=== PATIENT | female | born 2000 | race Hispanic/Latino ===

== ENCOUNTER 2020-02-13 18:49 | Day surgery (SDC) | payer OTHER ==
[2020-02-13 19:30] VITALS: TEMP 99; BMI 32.6
[2020-02-13 19:31] VITALS: BP 121/75
--- NOTE | 2020-02-13 20:31 | PDOC.FPROB ---
FMR OB H&P: HPI - History of Present Illness Chief Complaint: contractions History of Present Illness: Patient is a 19 year old @ 40.2 weeks based on 14.3 sono, JASON 02/11/2020 who presented to the ED with complaints of contractions that started the night before, initially q30 minutes but became every 6-7 min in the last few hours. She endorses +FM, notes scant white vaginal discharge. Denies LOF. Denies vaginal bleeding, dysuria, NVD, chest pain, SOB, palpitations, LE swelling, vision changes or headache. 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 - Surgical History Sx History: none - Social History Social History: no alcohol, drugs or smoking - Family History Family History: none FMR OB H&P: Medications - Current Home Medications: Medication Instructions Recorded Confirmed Type PNV No.118/Iron Fumarate/FA 1 tablet PO DAILY 02/13/20 02/13/20 History [ 19 Chewable Tablet] Allergies/Adverse Reactions: Allergies Allergy/AdvReac Type Severity Reaction Status Date / Time No Known Drug Allergies Allergy Verified 02/13/20 19:19 FMR OB H&P: ROS - Review of Systems General: denies: fever/chills, weight/appetite/sleep changes Eyes: denies: eye pain, vision changes ENT: denies: nasal congestion, rhinorrhea Cardiovascular: denies: chest pain, palpitation, edema Respiratory: denies: cough, congestion, shortness of breath Gastrointestinal: denies: nausea, vomiting, diarrhea, constipation Genitourinary (Female): reports: vaginal discharge (scant, white), contractions. denies: incontinence, dysuria, vaginal pain, vaginal bleeding Musculoskeletal: denies: pain, stiffness, tenderness Neurologic: denies: numbness, syncope, seizures, weakness, headache Integumentary: denies: itching, rash Breast: denies: lumps, bumps Endocrine: denies: polydipsia, polyuria Hematologic/Lymphatic: denies: prolonged or excessive bleeding, enlarged lymph nodes FMR OB H&P: Vital Signs - Maternal Vital signs: Vital Signs - First Documented Temp Pulse Resp BP 99.0 F 82 18 121/75 02/13/20 19:15 02/13/20 19:15 02/13/20 19:15 02/13/20 19:15 - Heart Tones Baseline: 140 Variability: moderate Acceleration: present Deceleration: absent Category: category 1 [place] contractions every: 5-7 FMR OB H&P: Physical Exam - Physical Exam General: NAD HEENT: normocephalic and atraumatic, PERRLA, EOMI, MMM Neck: supple, FROM Breast: symmetric, non-tender Heart: RRR, normal S1/S2, no murmurs/rubs/gallops General: CTAB, no respiratory distress Abdomen: soft, gravid, non-tender Musculoskeletal: normal gait and station, FROM in all four extremities Neurological: no tremor, no focal deficit Skin: no rash, good tugor Lymphatic: no unusual bruising or bleeding, no purpura Psychiatric: intact recent and remote memory, good judgement and insight, normal mood and affect - Pelvic Exam SVE: /-1 Membranes: intact Presentation: cephalic per US FMR OB H&P: A/P Discussion: Date/Time: 02/13/202030 sIUP, term at 40.2 weeks by 14.3 week sono labs neg, GBS negative @1930 /, cat I strip, sandy every 5-7 minutes, baseline 140s, membranes intact Patient is scheduled for induction of labor on 02/17/2020, patient lives 10 minutes away from the hospital - plan is to discharge with labor precautions, patient is agreeable to plan Varicella NonjImmune - needs vaccine PP Anemia in : H/H 11.4/33.1 on 01/27/2020 - on oral iron This H&P was discussed with Dr. Gaines who is in agreement with the plan. Addendum - Attending - Attending Attestation Date/Time: 02/14/20 3989 I personally evaluated the patient and discussed the management with Dr. Shelby. I agree with the History, Examination, Assessment and Plan documented above.
== END 2020-02-13 20:30 | disposition home or self-care (01) ==
LOC: L&D/OP 18:49
PROVIDERS: ATTEND Obstetrics & Gynecology
DX: O47.1 False labor at or after 37 completed weeks of gestation (principal); O48.0 Post-term pregnancy; O99.013 Anemia complicating pregnancy, third trimester; D50.9 Iron deficiency anemia, unspecified; O98.513 Other viral diseases complicating pregnancy, third trimester; B01.9 Varicella without complication; Z3A.40 40 weeks gestation of pregnancy

== ENCOUNTER 2020-02-14 09:28 | Outpatient (CLI) | payer OTHER ==
[2020-02-15 12:11] LABS: SARS-CoV-2 MS2 Positive; SARS-CoV-2 N Gene Negative; SARS-CoV-2 S Gene Negative; SARS-CoV-2 by NAA Not Detected (NotDetected); SARS-CoV-2 orf1ab Negative
== END 2020-02-14 09:29 | disposition home or self-care (01) ==
LOC: LABBT 09:28
PROVIDERS: ATTEND Family Medicine
DX: Z20.828 Contact with and (suspected) exposure to other viral communicable diseases (principal)
CPT/HCPCS: 87635; U0003

== ENCOUNTER 2020-02-15 16:07 | Inpatient (IN) | payer MEDICAID, OTHER, SELFPAY ==
[2020-02-15 16:31] VITALS: BMI 32.6
[2020-02-15] MEDS ORDERED: Ondansetron PF 4 MG/2 ML Vial IVP PRN (16:58)
[2020-02-15] MEDS ORDERED: Misoprostol 200 MCG TAB PR PRN (16:58)
[2020-02-15] MEDS ORDERED: Methylergonovine 0.2 MG/ML VIAL IM PRN (16:58)
[2020-02-15] MEDS ORDERED: Promethazine HCl 25 MG/ML VIAL IM PRN (16:58)
[2020-02-15] MEDS ORDERED: NS / Oxytocin 40 units/1000ml 1,000 ML IV PRN ×2 (16:58→18:57)
[2020-02-15] MEDS ORDERED: hydrALAZINE 20 MG/ML VIAL SLOW IVP PRN (16:58)
[2020-02-15] MEDS ORDERED: Lidocaine 1% (PF) 30 ML VIAL SC PRN (16:58)
[2020-02-15] MEDS ORDERED: Carboprost 250 MCG/ML AMP IM PRN (16:58)
[2020-02-15] MEDS ORDERED: Ibuprofen 800 MG TAB PO PRN (16:58)
--- NOTE | 2020-02-15 17:04 | PDOC.FPROB ---
FMR OB H&P: HPI - History of Present Illness Chief Complaint: SROM Primary Care Physician: 19 y/o at 40.4 wks by 14.3 wk clarice presents for SROM at 1500 this afternoon. Fluid reported to be stained with light meconium. Reports she has been feeling contractions for 3 days, which became stronger and more frequent early this AM. She feels her contractions to be 5-6 minutes apart. Endorses movement. Denies vaginal bleeding, vaginal discharge. She is also endorsing dysuria for the past 3 days, denies hematuria. She does have some back pain which she describes very low in her back, not over her costovertebral area. Complications during this include anemia of for which she has been given iron. She reports she is taking vitamin. 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 - Surgical History Sx History: no past surgeries - Social History Social History: denies tobacco, etoh, drug use - Family History Family History: denies significant family hx FMR OB H&P: Medications - Current Home Medications: Medication Instructions Recorded Confirmed Type PNV No.118/Iron Fumarate/FA 1 tablet PO DAILY 02/13/20 02/15/20 History [ 19 Chewable Tablet] Allergies/Adverse Reactions: Allergies Allergy/AdvReac Type Severity Reaction Status Date / Time No Known Drug Allergies Allergy Verified 02/15/20 16:32 FMR OB H&P: ROS - Review of Systems General: denies: fever/chills, fatigue Eyes: denies: vision changes ENT: denies: nasal congestion, rhinorrhea, sore throat Cardiovascular: denies: chest pain, palpitation, edema Respiratory: denies: cough, congestion, shortness of breath Gastrointestinal: denies: abdominal pain, diarrhea, constipation Genitourinary (Female): reports: dysuria, polyuria, contractions. denies: hematuria, vaginal discharge, vaginal bleeding, vaginal pressure Musculoskeletal: reports: pain (low back pain) Neurologic: denies: numbness, headache Integumentary: denies: rash Hematologic/Lymphatic: denies: prolonged or excessive bleeding FMR OB H&P: Vital Signs - Maternal Vital signs: Vital Signs - First Documented Temp Pulse Resp BP Pulse Ox 100.1 F H 80 16 131/80 99 02/15/20 16:26 02/15/20 16:26 02/15/20 16:26 02/15/20 16:26 02/15/20 16:26 - Heart Tones Baseline: 155 Variability: moderate Acceleration: present Deceleration: absent Category: category 1 [place] contractions every: q2-4 min, irregular contraction pattern FMR OB H&P: Physical Exam - Physical Exam General: NAD, awake, alert and oriented HEENT: normocephalic and atraumatic, MMM, conjunctiva clear, no scleral icterus, grossly normal vision, grossly normal hearing, good dention Neck: supple, no LAD Heart: RRR, normal S1/S2, no murmurs/rubs/gallops, pulses present, no edema General: CTAB, no respiratory distress, no rales/rhonchi, no wheezing Abdomen: soft, gravid, non-tender Musculoskeletal: pulses present Neurological: sensation to pain,touch and proprioception grossly normal, DTR +1, no clonus Skin: no rash Lymphatic: no unusual bruising or bleeding, no LAD Psychiatric: intact recent and remote memory, good judgement and insight, normal mood and affect - Pelvic Exam SVE: /-2 Membranes: SROM light mec reported Presentation: cephalic confirmed with bedside sono FMR OB H&P: A/P Disposition: sIUP @ 40.4 wks @ 40.4 wks with SROM with light meconium reported, ctx q2-4 min in an irregular pattern on toco. Initial SVE at 1445 /-2. GBS negative. COVID screen negative on 02/13. - NPO w/ice chips for labor - continue monitoring - recheck SVE in 2 hours - consider starting pitocin if no change with irregular contractions Meconium stained fluid Light meconium reported, Tmax 100.1F - continue to monitor vitals - consider addition ampicillin + gentamicin if develops true fever/signs of chorioamnionitis Dysuria - check UA and urine cx via straight cath Anemia of - resumed PNV and oral iron Varicella non-immune Will need vaccination post-. Discussion: Date/Time: 02/15/201702 This H&P was discussed with Dr. Christina and Dr. Gaines who agree with the above documentation and plan. Addendum - Attending - Attending Attestation Date/Time: 02/15/201905 I personally evaluated the patient and discussed the management with Drs. Villarreal and Carri. I agree with the History, Examination, Assessment and Plan documented above.
[2020-02-15 17:50] LABS: Mean Corpuscular HGB CONC 34.4 g/dL (32.0-36.0); Mean Corpuscular Hemoglobin 30.2 pg (25.0-35.0); Mean Corpuscular Volume 87.9 fL (78.0-98.0); Mean Platelet Volume 8.5 fL (7.4-10.4); Platelet Count 254 thou/uL (130-400); RBC Distribution Width 13.3 % (11.5-14.5); White Blood Cell (WBC) Count 14.5 thou/uL (4.8-10.8)
[2020-02-15] MEDS ORDERED: Lactated Ringer's 1,000 ML IV SCH (18:00)
[2020-02-15 18:32] LABS: Syphilis Antibody Nonreactive (Nonreactive); Syphilis Antibody Index 0.03 S/CO (<1.00 Non-Reactive)
[2020-02-15 18:33] LABS: HBSAg Index 0.12 S/CO (0-0.99); Hep B Surf Ag Non-Reactive S/CO (NonReactive)
--- NOTE | 2020-02-15 18:52 | PDOC.LDPN ---
Labor & Delivery Progress Note - Subjective Subjective: comfortable, vaginal pressure - Objective Vital signs reviewed and normal: yes General: resting SVE: 3.5/75/-1 Dilation: 3.5 Effacement: 75% Station: -1 FHT: category 1 [place] contractions every: 4-5 minutes Plan: continue plan of care, pitocin for augmentation -: sIUP @ 40.4 wks @ 40.4 wks with SROM with light meconium reported, ctx q2-4 min in an irregular pattern on toco. Initial SVE at 1445 3/75/-2. GBS negative. COVID screen negative on 02/13. - NPO w/ice chips for labor - continue monitoring - SVE @ 1845 3.5/75/-1, cat 1, irregular contraction pattern - pit started Meconium stained fluid Light meconium reported, Tmax 100.1F - continue to monitor vitals, Temp remains <100.4 - consider addition ampicillin + gentamicin if develops true fever/signs of c horioamnionitis Dysuria - check UA and urine cx via straight cath Anemia of - resumed PNV and oral iron Varicella non-immune Will need vaccination post-. Discussion: Date/Time: 02/15/201702 Addendum - Attending - Attending Attestation Date/Time: 02/15/201930 I personally evaluated the patient and discussed the management with Dr. Titus. I agree with the History, Examination, Assessment and Plan documented above with any addition or exceptions noted below. No progress noted x 2 hours, start pitocin 2* to light meconium.
[2020-02-15] MEDS ORDERED: NS w/ Oxytocin 10 units 500 ML IV SCH ×2 (19:00)
[2020-02-15 19:03] LABS: Bacteria/HPF None Seen HPF (None Seen); Bilirubin Negative (Negative); Blood, Urine 3+ (Negative); Clarity Clear (Clear); Glucose, Urine (Dipstick) Normal (Negative); Ketone, Urine Negative (Negative); Leukocyte Negative Leu/uL (Negative); Nitrite Negative (Negative); Protein, Urine (Dipstick) Negative (Neg-Trace); RBC/HPF 0-3 HPF (0-3); Specific Gravity, Urine 1.005 (1.002-1.036); Squamous Epithelial None Seen HPF (0-3); Urobilinogen Normal mg/dL (Less than 2); WBC/HPF 0-3 HPF (0-3)
--- NOTE | 2020-02-15 21:21 | PDOC.LDPN ---
Labor & Delivery Progress Note - Subjective Subjective: painful contractions - Objective Vital signs reviewed and normal: yes General: breathing through contractions SVE: /-1 Dilation: 4 Effacement: 90% Station: -1 FHT: category [address] [place] contractions every: 2-3 minutes Plan: continue plan of care, pitocin for augmentation -: sIUP @ 40.4 wks @ 40.4 wks with SROM with light meconium reported, ctx q2-4 min in an irregular pattern on toco. Initial SVE at 1445 /-2. GBS negative. COVID screen negative on 02/13. - NPO w/ice chips for labor - continue monitoring - SVE @ 1845 3.5/-1, cat 1, irregular contraction pattern - pit started - SVE @ 2115 /-1, cat 1, contractions 2-3 minutes Meconium stained fluid Light meconium reported, Tmax 100.9F - started ampicillin +gentamicin @ 1999 on 02/14 Dysuria - UA negative -UCx pending Anemia of - resumed PNV and oral iron Varicella non-immune Will need vaccination post-. Addendum - Attending - Attending Attestation Date/Time: 02/15/20 3198 I personally evaluated the patient and discussed the management with Dr. Titus. I agree with the History, Examination, Assessment and Plan documented above.
[2020-02-15] MEDS: Ampicillin 2 GM in Sodium Chloride 0.9% 100 ML IVPB SCH (21:22)
[2020-02-15] MEDS ORDERED: Acetaminophen 650 MG Suppository PR PRN (23:18)
[2020-02-15] MEDS ORDERED: Acetaminophen 325 MG TAB PO PRN (23:18)
--- NOTE | 2020-02-15 23:28 | PDOC.LDPN ---
Labor & Delivery Progress Note - Subjective Subjective: comfortable - Objective Abnormal vital signs: T: 101 General: NAD, breathing through contractions SVE: 6/100/0 Dilation: 6 Effacement: 100% Station: 0 FHT: category 2 (HR 160s), variability present [place] contractions every: 3-4 minutes Plan: continue plan of care, pitocin for augmentation -: sIUP @ 40.4 wks @ 40.4 wks with SROM with light meconium reported, ctx q2-4 min in an irregular pattern on toco. Initial SVE at 1445 3/75/-2. GBS negative. COVID screen negative on 02/13. - NPO w/ice chips for labor - continue monitoring - SVE @ 1845 3.5/75/-1, cat 1, irregular contraction pattern - pit started - SVE @ 2115 4/90/-1, cat 1, contractions 2-3 minutes - Temp 101, gave tylenol - SVE @ 2315 6/100/0, cat 2 (FHT 160s), contractions 3-4 minutes Meconium stained fluid Light meconium reported, Tmax 100.9F - started ampicillin +gentamicin @ 1999 on 02/14 Dysuria - UA negative -UCx pending Anemia of - resumed PNV and oral iron Varicella non-immune Will need vaccination post-. Addendum - Attending - Attending Attestation Date/Time: 02/16/20 5006 I personally evaluated the patient and discussed the management with Dr. Titus. I agree with the History, Examination, Assessment and Plan documented above.
[2020-02-15] MEDS ORDERED: Ampicillin 2 GM in Sodium Chloride 0.9% 100 ML IVPB SCH (23:59)
--- NOTE | 2020-02-16 01:32 | PDOC.LDPN ---
Labor & Delivery Progress Note - Subjective Subjective: comfortable, painful contractions - Objective Abnormal vital signs: Tmax - 101.7 General: NAD, breathing through contractions SVE: 6/100/0 Dilation: 6 Effacement: 100% Station: 0 FHT: category 2, variability present [place] contractions every: 3-4 minutes AROM: meconium stained fluid Plan: continue plan of care, other () -: sIUP @ 40.4 wks @ 40.4 wks with SROM with light meconium reported, ctx q2-4 min in an irregular pattern on toco. Initial SVE at 1445 3/75/-2. GBS negative. COVID screen negative on 02/13. - NPO w/ice chips for labor - continue monitoring - SVE @ 1845 3.5/75/-1, cat 1, irregular contraction pattern - pit started - SVE @ 2115 4/90/-1, cat 1, contractions 2-3 minutes - Temp 101, gave tylenol - SVE @ 2315 6/100/0, cat 2 (FHT 160s), contractions 3-4 minutes - SVE @ 0120 6/100/0, cat 2 (FHT 170-180s), thick meconium, contractions 2-3 minutes Meconium stained fluid Light meconium reported, Tmax 100.9F - started ampicillin +gentamicin @ 2000 on 02/14 Dysuria - UA negative -UCx pending Anemia of - resumed PNV and oral iron Varicella non-immune Will need vaccination post- Decision was made for due to failure to progress, and suspicion for chorioamniotis due to tachycardia and maternal fever Tmax 101.7 Addendum - Attending - Attending Attestation Date/Time: 02/16/20 0300 I personally evaluated the patient and discussed the management with Dr. Titus. SVE by me shows exam unchanged. Thick meconium noted. In view of FTP, chorioamnionitis and thick mec, will proceed with 1* C/S. I agree with the History, Examination, Assessment and Plan documented above.
[2020-02-16] MEDS ORDERED: ePHEDrine 50 MG/ML VIAL ONE (01:37)
[2020-02-16] MEDS ORDERED: Ondansetron PF 4 MG/2 ML Vial ONE (01:37)
[2020-02-16] MEDS ORDERED: Oxytocin 10 UNITS/ML VIAL ONE (01:37)
[2020-02-16] MEDS ORDERED: PHENYLEPHRINE-NS 100 MCG/ML 10 ML SYRINGE ONE (01:37)
[2020-02-16] MEDS ORDERED: Morphine PF 10 MG/10 ML VIAL ONE (01:37)
[2020-02-16] MEDS ORDERED: Ketorolac Tromethamine 30 MG/ML VIAL IVP PRN (02:08)
[2020-02-16] MEDS ORDERED: Ondansetron PF 4 MG/2 ML Vial IVP PRN ×2 (02:08→05:12)
[2020-02-16] MEDS ORDERED: L&D-Morphine 4 MG/ML VIAL SLOW IVP PRN (02:08)
[2020-02-16] MEDS ORDERED: Naloxone HCl 0.4 mg/ml Vial IV PRN (02:08)
[2020-02-16] MEDS ORDERED: diphenhydrAMINE 50 MG/ML VIAL IVP PRN (02:08)
[2020-02-16] MEDS ORDERED: Ondansetron HCl/PF 4 MG/2 ML Vial IVP PRN (02:08)
[2020-02-16] MEDS ORDERED: HYDROmorphone 2 MG/ML VIAL SLOW IVP PRN (02:08)
[2020-02-16] MEDS ORDERED: Promethazine HCl 25 MG/ML VIAL IM PRN (02:08)
[2020-02-16] MEDS ORDERED: Meperidine HCl/PF 25 MG/ML VIAL SLOW IVP PRN (02:08)
[2020-02-16] MEDS ORDERED: Promethazine HCl 25 MG SUPP PR PRN (02:08)
[2020-02-16] MEDS ORDERED: Naloxone HCl 0.4 mg/ml Vial IVP PRN ×2 (02:08)
[2020-02-16] MEDS ORDERED: Methylergonovine 0.2 MG/ML VIAL ONE (02:10)
[2020-02-16] MEDS ORDERED: Communication Order-Pharmacy FS SCH (02:15)
[2020-02-16] MEDS ORDERED: Ketorolac Tromethamine 30 MG/ML VIAL IVP SCH (02:15)
[2020-02-16 02:24] LABS: Base Excess (BEa) -8.1 mEq/L (-2.0 to +3.0)
[2020-02-16 02:27] LABS: Actual Bicarbonate (HCO3v) 18 mEq/L (22-28); Base Excess -7.5 mEq/L (-2.0 to +3.0)
[2020-02-16] MEDS ORDERED: Misoprostol 200 MCG TAB ONE ×2 (02:39)
[2020-02-16] MEDS ORDERED: Methylergonovine 0.2 MG/ML VIAL IM SCH (03:00)
[2020-02-16] MEDS ORDERED: Misoprostol 200 MCG TAB PR SCH (03:00)
[2020-02-16] MEDS: Ampicillin 2 GM in Sodium Chloride 0.9% 100 ML IVPB SCH (03:04)
--- NOTE | 2020-02-16 03:23 | PDOC.OPDEL ---
OB Operative/Delivery Note - Additional Findings/Plan Compilations/Other Findings: Procedure Note Date of Procedure: 02/16/20 Resident Surgeon: Alyssa Quesada MD PGY-3 Attending Surgeon: Pacheco Gaines MD Procedure: Repeat low transverse caesarean section Preoperative Diagnosis: 1) Term intrauterine 2) Chorioamnionitis 3) Failure to progress 4) Thick Meconium Postoperative Diagnosis: 1) Term intrauterine , delivered 2) Thick Meconium 3) Uterine Atony Anesthesia: spinal Indications: The patient is a 19 year old G1 female at 40.5 weeks gestation who presented with SROM, pLTCS called for failure to progress with chorioamnionitis and tachycardia. Procedure in Detail: After risks, benefits, and alternatives were explained to the patient, she gave informed consent. Pre-operative antibiotics included Ampicillin and Gentamicin for chorio. The patient was taken to the operating room and spinal anesthesia was initiated. She was placed in the supine position with a left tilt and prepped and draped in usual sterile fashion. A Pfannenstiel incision was made with a scalpel and carried down to the level of the fascia which was sharply nicked. The fascial cut was extended bilaterally with Eid scissors. The inferior and superior edges of the cut fascial edges were elevated with Monae clamps and the underlying rectus muscles were sharply and bluntly dissected free. The recti were divided digitally and retracted manually. The peritoneum was entered bluntly and retracted manually. A low transverse score was made with the scalpel and the uterus was entered in the midline with the scalpel. Thick meconium was seen. The hysterotomy was extended manually. Loose nuchal cord x1. The was noted to be vertex and was easily delivered by fundal pressure. Mouth and nares were bulb suctioned. Cord clamped and cut and female was handed to waiting nurse. Cord gas & blood was obtained. Placenta was expectantly extracted, found to be intact with 3 vessel cord and sent for pathology. The uterus was externalized and the endometrium was curetted with a dry lap. The uterus was closed with a running locking #1 Monocryl suture. For bleeding noted at the right lateral edge of incision a figure of eight using 1-0 Chromic was used. Figure of eight also thrown on left side of hysterotomy. Following this hemostasis was noted. Uterine Atony was noted and patient was given Methergine. The abdomen was irrigated & suctioned free of clots. The uterus was internalized and the hysterotomy was again noted to be hemostatic. Peritoneum was closed with 2-0 plain gut suture. The fascia was closed with a running non-locking 0-PDS suture. The subcutaneous tissue was irrigated and bleeders were cauterized with bovie. Subcutaneous tissue was closed with 2-0 plain gut. The skin was approximated with 4-0 Monocryl and a pressure dressing was placed. Cytotec 800mg was placed for uterine atony. All counts were correct. The patient tolerated the procedure well and was taken to the recovery room in stable condition. Quantitative Blood Loss: 592ml Complications: None Specimens: Cord blood sent to lab for blood type. Placenta sent for path. Cord gas obtained. Findings: Grossly normal female infant with Apgars of 8 and 9. Grossly normal placenta with 3 vessel cord sent for pathology Drains: [place] to gravity draining clear urine Addendum - Attending - Attending Attestation Date/Time: 02/16/20 3753 I personally attended this 1* C/S for FTP, chorioamnionitis and meconium with Dr. Quesada. I agree with the documentation above.
[2020-02-16] MEDS ORDERED: Simethicone Chewable 80 MG TAB PO PRN (05:12)
[2020-02-16] MEDS ORDERED: Acetaminophen 325 MG TAB PO PRN (05:12)
[2020-02-16] MEDS ORDERED: Lanolin Ointment 7 GM TUBE TOP PRN (05:12)
[2020-02-16] MEDS ORDERED: hydrALAZINE 20 MG/ML VIAL SLOW IVP PRN (05:12)
--- NOTE | 2020-02-16 06:08 | PDOC.BPN ---
<Brock Titus - Last Filed: 02/16/20 06:08> - Brief Progress Note Encounter Date: 02/16/20 Encounter Time: 06:00 4hr post pLTCS S: Patient is doing well. Reports minimal pain and denies cramping, says her legs are still numb but are starting to wake up. Reports minimal lochia. Denies headache, vision changes, CP, SOB. O: T: 98.4, all other vitals wnl Exam: RRR w/o m/r/g CTAB soft, appropriately tender abdomen, fundus firm and below level of umbilicus no edema 19 yo 4hr post pLTCS at 40.5 wks -Continue routine care Chorioamniotis, Tmax 101.7 -afebrile -continue gentamicin and clindamycin <Pacheco Gaines - Last Filed: 02/16/20 06:56> Addendum - Attending - Attending Attestation Date/Time: 02/16/20 0656 I personally evaluated the patient and discussed the management with Dr. Titus. I agree with the History, Examination, Assessment and Plan documented above.
[2020-02-16] MEDS: Clindamycin/D5W 900 MG in Premix Bag 1 BAG IVPB SCH ×3 (06:24→22:09)
[2020-02-16] MEDS ORDERED: Ferrous Sulfate 325 MG TAB PO SCH (08:00)
[2020-02-16] MEDS ORDERED: Adacel (T-DAP) 0.5 ML SYRINGE IM ONE (09:00)
[2020-02-16] MEDS ORDERED: Prenatal Vitamin 1 TAB PO SCH (09:00)
[2020-02-16] MEDS: Ibuprofen 800 MG TAB PO SCH ×3 (11:31→21:10)
[2020-02-16] MEDS: Prenatal Vitamin 1 TAB PO SCH (11:32)
[2020-02-16] MEDS: Ferrous Sulfate 325 MG TAB PO SCH (11:32)
[2020-02-16] MEDS ORDERED: Acetaminophen/Codeine 30-300mg Tablet PO PRN (14:15)
[2020-02-17] MEDS: Ferrous Sulfate 325 MG TAB PO SCH ×4 (02:48→21:03)
[2020-02-17] MEDS: Acetaminophen/Codeine 30-300mg Tablet PO PRN ×2 (05:03→16:20)
[2020-02-17] MEDS: Ibuprofen 800 MG TAB PO SCH ×3 (05:05→22:51)
[2020-02-17] MEDS: Clindamycin/D5W 900 MG in Premix Bag 1 BAG IVPB SCH ×3 (05:05→22:52)
[2020-02-17 06:06] LABS: Hemoglobin 9.9 g/dL (12.0-16.0); Mean Corpuscular HGB CONC 34.5 g/dL (32.0-36.0); Mean Corpuscular Hemoglobin 30.5 pg (25.0-35.0); Mean Corpuscular Volume 88.5 fL (78.0-98.0); Mean Platelet Volume 8.4 fL (7.4-10.4); Platelet Count 202 thou/uL (130-400); RBC Distribution Width 13.4 % (11.5-14.5); Red Blood Cell (RBC) Count 3.23 mill/uL (4.00-5.20); White Blood Cell (WBC) Count 18.2 thou/uL (4.8-10.8)
--- NOTE | 2020-02-17 07:51 | PDOC.PP ---
Post Progress Note Post Day #: 1 Subjective: Pain well controlled. Breast and bottlefeeding. Having difficulty with latch. Passing gas. Denies problems with urination. Ambulating and tolerating PO. PO intake tolerated: yes Flatus: yes Ambulation: yes Vital Signs (12 hours) Temp Pulse Resp BP BP Pulse Ox 02/17/20 07:44 97.7 F 73 20 95/53 L 98 02/17/20 05:00 97.6 F 83 20 104/57 L 99 02/17/20 02:00 18 02/17/20 00:00 98.7 F 99 18 102/57 L 98 02/16/20 22:00 18 Weight Weight 68.492 kg - Physical Examination General: NAD Cardiovascular: no m/r/g, RRR Respiratory: clear to auscultation bilaterally Abdominal: + bowel sounds, appropriately TTP Fundus firm & at: umbilicus Skin: CS incision dry & intact Neurological: no gross focal deficits Psychiatric: A&Ox3, normal affect Result Diagrams: 02/17/20 05:44 Additional Labs: Post Labs Hep Bs Antigen Non-Reactive S/CO (NonReactive) 02/15/20 17:39 Blood Type O POSITIVE 02/15/20 20:27 - Assessment/Plan sIUP, delivered pLTCS for failure to progress and Chorioamnionitis - POD #1 - Total QBL: 686ml - Hgb: 13-> 9.9 - Contraception plan: Patch - Likely dispo home tomorrow Chorioamnionitis - Tx'ed with Amp/Gent Antepartum - Gent and Clinda PP for 48hrs. Afebrile. Abdomen nontender. Rubella non-immune - MMR
[2020-02-17] MEDS: Prenatal Vitamin 1 TAB PO SCH (07:53)
[2020-02-17] MEDS ORDERED: Sodium Chloride 0.9% 10 ML ONE (20:59)
[2020-02-18] MEDS: Ibuprofen 800 MG TAB PO SCH ×2 (05:46→13:35)
[2020-02-18 06:55] VITALS: TEMP 98.1
--- NOTE | 2020-02-18 07:30 | PDOC.PP ---
Post Progress Note Post Day #: 2 Subjective: Pain well controlled. Ambulating. Bottle feeding. Lochia about like period. PO intake tolerated: yes Flatus: yes Ambulation: yes Vital Signs (12 hours) Temp Pulse Resp BP BP Pulse Ox 02/18/20 05:45 98.1 F 67 15 137/83 02/18/20 00:00 98.8 F 91 15 128/79 02/17/20 19:33 98.6 F 74 16 107/56 L 96 Weight Weight 68.492 kg - Physical Examination General: NAD Cardiovascular: no m/r/g, RRR Respiratory: clear to auscultation bilaterally, non-labored breathing Abdominal: + bowel sounds, appropriately TTP Skin: CS incision dry & intact Neurological: no gross focal deficits Psychiatric: A&Ox3, normal affect Result Diagrams: 02/17/20 05:44 Additional Labs: Post Labs Hep Bs Antigen Non-Reactive S/CO (NonReactive) 02/15/20 17:39 Blood Type O POSITIVE 02/15/20 20:27 - Assessment/Plan sIUP, delivered pLTCS for failure to progress and Chorioamnionitis - POD #2 - Contraception plan: Patch - Discharge today after off abx for 12hrs. Chorioamnionitis - Tx'ed with Amp/Gent Antepartum - Gent and Clinda PP for 48hrs PP. Afebrile. Abdomen nontender. Rubella non-immune - MMR
[2020-02-18 08:15] VITALS: BP 108/71
[2020-02-18] MEDS: Prenatal Vitamin 1 TAB PO SCH (09:39)
[2020-02-18] MEDS: Ferrous Sulfate 325 MG TAB PO SCH (09:39)
== END 2020-02-18 14:00 | disposition home or self-care (01) | DRG 786 ==
LOC: L&D/OP 16:07 → L&D 18:50 → 3SW 02-16 05:41
PROVIDERS: ADMIT Obstetrics & Gynecology; ATTEND Obstetrics & Gynecology
PROC: 10D00Z1 Extraction of Products of Conception, Low, Open Approach (ICD-10-PCS; principal; 2020-02-16)
DX: O62.2 Other uterine inertia (principal); O41.1230 Chorioamnionitis, third trimester, not applicable or unspecified; O77.0 Labor and delivery complicated by meconium in amniotic fluid; R30.0 Dysuria; O48.0 Post-term pregnancy; Z20.828 Contact with and (suspected) exposure to other viral communicable diseases; O99.02 Anemia complicating childbirth; D64.9 Anemia, unspecified; Z37.0 Single live birth; Z3A.40 40 weeks gestation of pregnancy
CPT/HCPCS: 36415; 51702; 81001; 82805; 85027; 86780; 86850; 86900; 86901; 87086; 87340; 88307; 99285; J0290; J1580; J2210; J2270; J2405; J2590; J3490

== ENCOUNTER 2024-03-29 13:57 | Outpatient (CLI) | payer OTHER | END 2024-03-29 13:58 | disposition home or self-care (01) | LOC: BICULT 13:57 | PROVIDERS: ATTEND Nurse Practitioner Women's Health | DX: T83.32XA Displacement of intrauterine contraceptive device, initial encounter (principal) | CPT/HCPCS: 76856; 93976 ==